=== PATIENT | female | born 1955 | race Two or more races ===

== ENCOUNTER 2017-08-07 09:29 | Outpatient (CLI) | payer OTHER | END 2017-08-07 09:36 | disposition home or self-care (01) | LOC: SONOGRAMA 09:29 | DX: R10.84 Generalized abdominal pain (principal) ==

== ENCOUNTER 2018-10-03 14:10 | Outpatient (CLI) | payer OTHER ==
[~2018-10-03] VITALS: Ht 175.3 cm; Wt 74.4 kg
== END 2018-10-03 14:30 | disposition home or self-care (01) ==
LOC: OFIC 805 14:10
DX: H81.49 Vertigo of central origin, unspecified ear (principal)

== ENCOUNTER 2018-10-10 09:54 | Outpatient (CLI) | payer OTHER ==
[~2018-10-10] VITALS: Ht 152.4 cm; Wt 74.4 kg
== END 2018-10-10 10:10 | disposition home or self-care (01) ==
LOC: OFIC 805 09:54
DX: H81.49 Vertigo of central origin, unspecified ear (principal)

== ENCOUNTER 2018-10-26 13:10 | Outpatient (CLI) | payer OTHER | END 2018-10-26 13:23 | disposition home or self-care (01) | LOC: RAD 13:10 | DX: M54.5 Low back pain (principal); I10 Essential (primary) hypertension; Z01.810 Encounter for preprocedural cardiovascular examination; G90.01 Carotid sinus syncope; I65.29 Occlusion and stenosis of unspecified carotid artery; M81.0 Age-related osteoporosis without current pathological fracture; Z12.11 Encounter for screening for malignant neoplasm of colon; Z13.820 Encounter for screening for osteoporosis; Z12.31 Encounter for screening mammogram for malignant neoplasm of breast; Z87.891 Personal history of nicotine dependence; M54.2 Cervicalgia; M75.101 Unspecified rotator cuff tear or rupture of right shoulder, not specified as traumatic ==

== ENCOUNTER 2018-11-08 10:07 | Outpatient (CLI) | payer OTHER | END 2018-11-08 10:33 | disposition home or self-care (01) | LOC: NUCLEAR 10:07 | DX: M81.0 Age-related osteoporosis without current pathological fracture (principal); G90.01 Carotid sinus syncope; I65.29 Occlusion and stenosis of unspecified carotid artery; R55 Syncope and collapse ==

== ENCOUNTER 2018-11-29 12:31 | Outpatient (CLI) | payer OTHER ==
[~2018-11-29] VITALS: Ht 152.4 cm; Wt 74.4 kg
== END 2018-11-29 14:12 | disposition home or self-care (01) ==
LOC: OFIC 805 12:31
DX: M54.2 Cervicalgia (principal); R42 Dizziness and giddiness; M75.21 Bicipital tendinitis, right shoulder

== ENCOUNTER 2018-12-01 12:01 | Outpatient (CLI) | payer OTHER | END 2018-12-01 12:08 | disposition home or self-care (01) | LOC: LAB 12:01 | DX: N20.0 Calculus of kidney (principal) ==

== ENCOUNTER 2018-12-01 13:40 | Outpatient (CLI) | payer OTHER | END 2018-12-01 13:42 | disposition home or self-care (01) | LOC: MRI 13:40 | DX: R42 Dizziness and giddiness (principal) | CPT/HCPCS: 70552 ==

== ENCOUNTER 2024-02-23 12:15 | Outpatient (CLI) | payer OTHER | END 2024-02-23 12:24 | disposition home or self-care (01) | LOC: TOM 12:15 | PROVIDERS: ATTEND Otolaryngology Otology & Neurotology | DX: J31.0 Chronic rhinitis (principal) ==